=== PATIENT | male | born 1950 | race Caucasian/White ===

== ENCOUNTER 2019-10-28 12:56 | Emergency (ER) | payer OTHER ==
[~2019-10-28] VITALS: Ht 177.8 cm; Wt 130.2 kg
[2019-10-28 14:46] LABS: ANION GAP 11 mmol/L (7-16); BUN 16 mg/dL (7-18); CALCIUM 9.7 mg/dL (8.5-10.1); CHLORIDE 101 mmol/L (98-107); CO2 27 mmol/L (21-32); GLUCOSE 148 mg/dL (74-106); POTASSIUM 4.4 mmol/L (3.5-5.1); SODIUM 139 mmol/L (136-145)
[2019-10-28 14:56] LABS: ABSOLUTE NEUTROPHILS 4.6 thou/uL (1.4-8.2); BASOPHILS 0.8 % (0.0-2.0); EOSINOPHILS 0.7 % (0.0-3.0); HEMATOCRIT 42.2 % (42.0-52.0); HEMOGLOBIN 13.9 gm/dL (14.0-18.0); LYMPHOCYTES 10.6 % (24.0-44.0); MCH 29.9 pg (26.0-34.0); MCV 90.5 fL (80.0-100.0); MONOCYTES 11.1 % (1.0-8.0); PLATELET COUNT 174 thou/uL (150-400); POLYS 76.8 % (36.0-66.0); RDW 14.8 % (10.5-14.5)
[2019-10-28 14:58] LABS: ALBUMIN 3.9 g/dL (3.4-5.0); SGOT 42 U/L (15-37); SGPT 52 U/L (30-65); TOTAL PROTEIN 7.9 g/dL (6.4-8.2); TROPONIN-I <0.06 ng/mL (<0.06)
--- NOTE | 2019-10-28 16:24 | EKG ---
[facility] [place] [address] ELECTROCARDIOGRAM REPORT Name: FERNANDO MAHER Room #: REG [facility]..#: [id number] Admission: 10/28/19 Attend Phys: Discharge: Date of : 50 Report #: [id number] THIS REPORT FOR: cc: Doris Hernandes MD, Melanie MD Lundgren,Vernon Cerna MD [facility] ~ THIS REPORT FOR: //name// [facility] ED Test Date: 2019-10-28 Test Time: 13:14:46 Pat Name: FERNANDO MAHER Department: Room: Gender: Senior [employer] Developer: : 1950 Requested By: Nehemias Barakat Order Number: [id number] MD: Vernon Moreau Measurements Intervals [place] Rate: 95 P: 18 [place]: 185 QRS: -32 QRSD: 95 T: 110 QT: 356 QTc: 448 Interpretive Statements Sinus rhythm Leftward axis LVH with secondary repolarization abnormality No previous ECG available for comparison Electronically Signed On 10-28-2019 16:23:30 [employer] INTERN by Vernon Moreau [email or web address] <ELECTRONICALLY SIGNED> By: Vernon Moreau MD, [facility] 10/28/19 1623 1314 1314 Vernon Moreau MD, [facility] /EPI
[2019-10-28 16:52] VITALS: BP 147/99
--- NOTE | 2019-10-31 08:27 | EKG ---
[facility] [place] [address] ELECTROCARDIOGRAM REPORT Name: FERNANDO MAHER [id number] Admission: 10/28/19 Attend Phys: Discharge: 10/28/19 Date of : 50 Report #: [id number] THIS REPORT FOR: cc: Doris Hernandes MD, Melanie MD Lundgren,Vernon Cerna MD [facility] ~ THIS REPORT FOR: //name// [facility] ED Test Date: 2019-10-28 Test Time: 13:40:18 Pat Name: FERNANDO MAHER Department: Room: Gender: Movers: [place] : 1950 Requested By: Aura Rodriguez Order Number: [id number] MD: Vernon Moreau Measurements Intervals [place] Rate: 96 P: 17 [place]: 192 QRS: -36 QRSD: 98 T: 120 QT: 354 QTc: 448 Interpretive Statements Sinus rhythm RSR' in V1 or V2, right VCD LVH with secondary repolarization abnormality Inferior infarct, old Compared to ECG 10/28/2019 13:14:46 Inferior Q waves are more prominent Electronically Signed On 10-31-2019 8:25:59 [employer] by Vernon Moreau [email or web address] <ELECTRONICALLY SIGNED> By: Vernon Moreau MD, FAC 10/31/19 0825 1340 1340 Vernon Moreau MD, FAC /EPI
== END 2019-10-28 16:53 | disposition home or self-care (01) ==
LOC: ER 12:56
PROVIDERS: Emergency Medicine; Physician Assistant
DX: R07.89 Other chest pain (principal)